=== PATIENT | male | born 1985 | race Caucasian/White ===

== ENCOUNTER 2022-03-30 21:13 | Emergency (ER) | payer SELFPAY ==
[2022-03-30 22:11] VITALS: BP 141/79; PULSE 98; TEMP 97.5; BMI 27.3
[2022-03-31] MEDS ORDERED: DEXAMETHASONE SOD PHOSPHATE 10 MG/1 ML VIAL IM ONE (00:55)
[2022-03-31] MEDS ORDERED: KETOROLAC TROMETHAMINE 30 MG/1 ML VIAL IM ONE (00:55)
[2022-03-31] MEDS ORDERED: KETOROLAC TROMETHAMINE 30 MG/1 ML VIAL ONE (00:57)
[2022-03-31] MEDS ORDERED: DEXAMETHASONE SOD PHOSPHATE 10 MG/1 ML VIAL ONE (00:57)
[2022-03-31 02:22] LABS: THROAT:GRP A STREP NOT DETECTED (NOTDETECTED)
== END 2022-03-31 02:06 | disposition home or self-care (01) ==
LOC: JERFT 21:13 → JER 21:13
PROC: 3E0233Z Introduction of Anti-inflammatory into Muscle, Percutaneous Approach (ICD-10-PCS; principal; 2022-03-30)
PROC: 3E0233Z Introduction of Anti-inflammatory into Muscle, Percutaneous Approach (ICD-10-PCS; 2022-03-30)
DX: J02.9 Acute pharyngitis, unspecified (principal)
CPT/HCPCS: 0241U-QW; 87651; 99284-25; J1100

== ENCOUNTER 2022-04-02 14:33 | Emergency (ER) | payer SELFPAY ==
[2022-04-02 14:57] VITALS: BP 124/77; PULSE 89; TEMP 98; BMI 31.2
== END 2022-04-02 16:22 | disposition left against medical advice (07) ==
LOC: JER 14:33
DX: R44.0 Auditory hallucinations (principal)
CPT/HCPCS: 99281-25